=== PATIENT | male | born 1995 ===

== ENCOUNTER 2020-07-23 19:03 | Emergency (ER) | payer BC, SELFPAY ==
--- NOTE | 2020-07-23 19:08 | XRR_ITS ---
PROCEDURE INFORMATION: Exam: XR Left Hand Exam date and time: 07/23/2020 7:57 PM Age: 25 years old Clinical indication: Injury or trauma; Initial encounter; Blunt trauma (contusions or hematomas); Patient HX: Trauma, dropped oxygen tank on left hand TECHNIQUE: Imaging protocol: XR Left hand. Views: 3 or more views. COMPARISON: No relevant prior studies available. FINDINGS: Bones/joints: No acute fracture. No dislocation. Normal bone mineralization. No joint effusion. Joint spaces are maintained. Soft tissues: No soft tissue swelling. No radiopaque foreign body. XR/XR hand LT min 3V* [id number] IMPRESSION: No acute fracture. Followup imaging recommended in 7-14 days if clinical concern for fracture persists.
--- NOTE | 2020-07-23 19:52 | PC.NURSE ---
CALL PT FOR TRIAGE NO ANSWER AT THIS TIME. WILL ATTEMPT TO CALL PT FOR TRIAGE AGAIN.
[2020-07-23 19:57] VITALS: BP 162/90; PULSE 70; RESP 16; TEMP 36.9; O2SAT 98; BMI 31.8
--- NOTE | 2020-07-23 20:48 | W.ED.EXTPRO ---
HPI - Extremity Problem General: Chief complaint: Extremity Injury, Upper Stated complaint: left hand smashed Time Seen by Provider: 07/23/20 20:48 History of Present Illness: HPI Narrative: Patient is a 25-year-old male who comes to the ED with left hand injury. Injury occurred just prior to arrival. Patient said he had a oxygen tank fall and hit his left hand. He now has some hand pain and swelling in the left hand. Patient says he still been able to move his hand and fingers and he states he has minimal pain. He does not want any pain medication while here in the ED. Associated symptoms: Deny chest pain, fever(s) or rash Review of Systems Const: Denies: fever(s), chills or fatigue Eyes: Denies: change in vision or eye discomfort ENMT: Denies: throat pain, odynophagia, nasal discharge or nasal congestion Card: Denies: chest pain, palpitations, edema, swelling of feet/ankles, dyspnea on exertion or orthopnea Resp: Denies: dyspnea, productive cough or non-productive cough GI: Denies: abdominal pain, nausea, vomiting, diarrhea, constipation or hematochezia : Denies: flank pain, difficulty urinating, dysuria or hematuria Musc: Reports: extremity pain (left hand pain) and extremity swelling (left hand); Denies: neck pain or back pain Skin/Breast: Denies: rash or new lesions Neuro: Denies: headache(s), numbness in extremities or weakness in extremities Physical Exam Const: COMMON NORMALS: no acute distress, patient oriented x3, healthy appearing and alert GENERAL APPEARANCE: cooperative and comfortable HENMT: COMMON NORMALS: normocephalic HEAD & SCALP: normocephalic MOUTH: Normal oral and palatal mucosa present THROAT: posterior oropharynx normal and uvula midline Neck/C-Spine: COMMON NORMALS: supple GENERAL: Yes normal visual inspection Resp: COMMON NORMALS: normal respiratory effort, No retractions, No use of accessory muscles and clear to auscultation bilaterally AUSCULTATION: clear to auscultation bilaterally Cardio: COMMON NORMALS: regular rate, regular rhythm, S1 normal heart sound present, S2 normal heart sound present, No gallops present (Cardio), No clicks present (Cardio), No murmurs present (Cardio) and Peripheral pulses 2+ throughout RATE: regular rate RHYTHM: regular rhythm HEART SOUNDS: S1 normal heart sound present and S2 normal heart sound present PERIPHERAL PULSES: Peripheral pulses 2+ throughout GI: COMMON NORMALS: Normal to inspection, nondistended, normoactive bowel sounds present, Soft to palpation, non-tender and no masses PALPATION: Yes Soft to palpation : COMMON NORMALS: Yes no CVA tenderness BLADDER/KIDNEY EXAM: Yes no CVA tenderness Back/Pelvis: COMMON NORMALS: no CVA tenderness Extremity: NARRATIVE EXTREMITY EXAM: Patient's left hand is swollen. Mild tenderness to palpation over the second digit metacarpal region. Neurovascular intact. Patient has full range of motion with hand with mild pain. Neuro: COMMON NORMALS: patient oriented x3 and moves all extremities SENSORIUM/ORIENTATION: Yes alert Skin: GENERAL SKIN EXAM: dry skin Course Vital Signs: Vital signs: Vital Signs Temperature 98.4 F 07/23/20 19:57 Pulse Rate 69 07/23/20 21:35 Respiratory Rate 17 07/23/20 21:35 Blood Pressure 144/68 07/23/20 21:35 Pulse Oximetry 98 07/23/20 21:35 MDM - Extremity (Nontraumatic) MDM Narrative: Medical decision making narrative: Patient is a 25-year-old male comes to the ED with left hand injury. Patient's left hand has swelling but he has full range of motion with some minimal pain and neurovascular intact. X-ray of left hand shows no acute fractures or findings. Patient was diagnosed with a contusion of left hand and told to apply ice or cold pack to help with swelling and to take ibuprofen for pain and inflammation. Follow-up with PCP in 7 to 10 days. Return to ED precautions given. patient understood agree with plan. Imaging Data^: Xray Ortho: Attestation: I personally reviewed and interpreted this imaging study as follows: My impression: Left hand x-ray showed no acute fractures or findings. Discharge Plan Discharge Patient Disposition: Home Clinical Impression: Contusion Qualifiers: Encounter type: initial encounter Contusion area: hand Laterality: left Qualified Code(s): S60.222A - Contusion of left hand, initial encounter Condition: Stable Prescriptions: No Action No Known Home Medications RF: 0 Discharge Orders: Discharge Order (Routine); Ordered 07/23/20 Ordered By: Yassine Raygoza Referrals: Vi Juárez DO [Primary Care Provider] - Discharge Diet: Regular Discharge Activity: Increase activity as tolerated Patient Instructions: Contusion in Adults (ED) Activity Restrictions/Additional Instructions: Follow-up with medical provider as directed in 7-10 days. Take ibuprofen information. Apply ice or cold pack on hand to help with swelling. Return to the ER or your medical provider if condition worsens. Please read and understand discharge instructions. If any questions, please ask. Discharge Date/Time: 07/23/20 21:36 Coding Level of Care Code ED It Applications Developer for Denisha Fwd Exam Comprehensive
[2020-07-23] MEDS: tetanus-dipt-pertussis 0.5 mL SDV IM (21:20)
[2020-07-23 21:35] VITALS: BP 144/68; PULSE 69; RESP 17; O2SAT 98
== END 2020-07-23 21:36 | disposition home or self-care (01) ==
PROVIDERS: Emergency Provider Physician Assistant; PCP Family Medicine
DX: S60.222A Contusion of left hand, initial encounter (principal); W20.8XXA Other cause of strike by thrown, projected or falling object, initial encounter; Z23 Encounter for immunization
CPT/HCPCS: 12345; 73130; 90471; 90715; 99281; 99282